=== PATIENT | male | born 1950 | race Caucasian/White ===

== ENCOUNTER 2020-11-25 22:23 | Emergency (ER) | payer OTHER ==
[~2020-11-25] VITALS: Ht 182.9 cm; Wt 83.9 kg
[2020-11-26 04:29] VITALS: BP 125/78
[2020-11-26] MEDS ORDERED: LIPITOR 40 MG T40 M1 PO (11:01)
== END 2020-11-26 04:30 ==
LOC: ER 22:23
PROVIDERS: Emergency Medicine
DX: F23 Brief psychotic disorder (principal); J44.9 Chronic obstructive pulmonary disease, unspecified; K21.9 Gastro-esophageal reflux disease without esophagitis; Z95.1 Presence of aortocoronary bypass graft; Z20.822 Contact with and (suspected) exposure to COVID-19

== ENCOUNTER 2020-11-26 04:30 | Inpatient (IN) | payer OTHER ==
[~2020-11-26] VITALS: Ht 182.9 cm; Wt 84.3 kg
[2020-11-26 04:51] VITALS: BP 146/86
--- NOTE | 2020-11-26 05:59 | NUR ---
RECEIVED REPORT FROM POWER MAYO IN ED. PT ARRIVED ON UNIT 0430 PT AAOX4, VS B/P 146/86, P 55, R 18, T 97.2, 99% RA RR EVEN AND NONLABORED. PT LUNGS CLEAR, HT S1, S2 RR, ABD ACTIVE. PT DENIES SI/HI AND PAIN. PT PRESENTS IN MANIC STATE, EASILY REDIRECTED. HCP Maninder PAVON MD AND Betzaida VILLALTA NP MESSAGE LEFT. PT HX BIPOLAR, PTSD, COPD, GERD, OA, PROSTATE CA, CABG, PROSTECTOMY, C SPINE SURGERY. ZERO S/S OF ACUTE [id number] NOTED, PT WILL CONTINUE TO BE MONITOR PER [facility] PROTOCOL.
[2020-11-26 09:12] VITALS: BP 148/84
[2020-11-26] MEDS ORDERED: LIPITOR 40 MG T40 M1 PO (11:01)
--- NOTE | 2020-11-26 12:33 | NUR ---
PHONG sat in a meeting with pt and Dr. Bunn. Pt appeared very manic and talked about a variety of topics. He admitted he uses LSD and marijuana. Pt also said he was in [place] the early 1970s, but he did not say why. 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 He says both his brother and his father suffered from manic like MH dx. PHONG and Dr. Bunn spoke with Miley his who said she is his DPOA. A nursing staff gave PHONG the document. She confirmed that pt does use LSD and marijuana. She said pt has been going to the [place] facilites he worked at formerly and acts like he has Alzheimers. She said he annoys anyone who is not his family. She has asked that pt not be allowed to contact anyone that is not family. PHONG team will continue to follow pt during his stay on this unit.
--- NOTE | 2020-11-26 13:38 | NUR ---
Assess due to admit to [facility]. Manic, hx bipolar, PTSD, CABG, substance abuse. Eating 100% of first few meals on unit. Wt status adequate. Low nutrition risk
--- NOTE | 2020-11-26 15:32 | NUR ---
ROCK LOADER WAS A WITNESS VIA PHONE FOR THE REENACTMENT OF DPOA PAPER WORK WITH ADOLFO DE LA GARZA. VOICED UNDERSTANDING AND AGREES WITH DR PERSON PLAN OF CARE.
--- NOTE | 2020-11-26 17:12 | NUR ---
Assumed pt care at 0700. pt was alert and oriented x4. Ambulates with a steady gait. participates in groups. took medication whole without difficulty. Assessments completed,vss.no sign of acute distress noted upon assessments. DEnies si/hi. denies pain. Pt was being inappropriate most of the day. pt touches the female pts, and staffs inappropriately. pt was redirected severally by staff. pt was told to stop touching other pts. pt continues to be inappropriate, loud, unco-operative and disruptive. At 0906 pt got 15mg IM of Geodon. At this time pt is in the day room. will continue to monitor pt.
[2020-11-26 19:03] VITALS: BP 123/80
--- NOTE | 2020-11-27 03:01 | NUR ---
11-26-20 CARE TRANSFERRED 1899 OBSERVED PT WALKING IN HALLWAY. LATER PT AAOX4, VSS, RR EVEN AND NONLABORED ON RA. PT DENIES PAIN AND SI/HI. PT PRESENTS IN MANIC STATE AND EMOTION EASILY CHANGE FROM HAPPY TO CRYING. PT HAS POOR SOCIAL BARRIER OFTEN CROSSING INTO OTHERS SPACE, PT HAS BEEN EASILY REDIRECTED WITH NO DIFFICULTIES. DURING MEDICATION ADMIN PT WAS WANTING TO LOWER AMOUNT OF MEDICATION AND TRIED TO NEOGITATION WHEN EXPLAINED ABOUT THERAPUTIC LEVELS PT WAS COMPLIANT WITH MEDICATON. ZERO S/S OF ACUTE DISTRESS NOTED, PT WILL CONTINUE TO BE MONITOR PER [facility] PROTOCOL.
[2020-11-27 09:09] VITALS: BP 123/80
--- NOTE | 2020-11-27 09:19 | NUR ---
THIS ASSUMED CARE AT 0700 THIS MORNING. HE IS HYPERVERVAL. HE IS ATTEMPTING TO TAKE CARE OF PEERS. STAFF HAS BEEN ASKED BY STAFF NOT TO CARETAKE OTHERS. HE SEEMED UPSET WITH THIS AND SAT IN A CHAIR BY HIMSELF. HE ATTENDED MORNING MEETING AND WAS INTERESTED IN TELLING THE STAFF IF THEY WERE DOING A GOOD JOB OR NOT. ASSESSMENT IS UNREMARKABLE THIS MORNING. HE TOOK HIS MORNING MEDICATIONS WITHOUT PROBLEMS NOTED.
[2020-11-27 10:51] VITALS: BP 132/81
--- NOTE | 2020-11-27 13:39 | NUR ---
PHONG received a msg from [place] asking for clarification on if pt is on a 96hr hold. PHONG and Dr. Bunn contacted Miley and explained to her that pt signed in willingly; the possibility of a 96 came from [facility] and was not needed since pt signed himself in. Yesterday, pt wanted to sign himself out but was still very manic so Dr. Bunn enacted his DPOA so that he could not, and the unit will now defer to Miley for decisions. Miley said she is in agreement with that plan; she said that he is not to leave until the psychiatrist says he is ready. PHONG team will continue to follow pt during his stay on this unit.
[2020-11-27 19:19] VITALS: BP 134/77
--- NOTE | 2020-11-28 03:55 | NUR ---
11-27-20 CARE TRANSFERRED 1899 OBSERVED PT SITTING IN DAY ROOM SOCIALIZING WITH PEER. LATER PT AAOX4, VSS, RR EVEN AND NONLABORED ON RA, PT DENIES PAIN AND SI/HI. PT HAS REMAINED CALM AND COOPERATIVE. ZERO S/S OF ACUTE DISTRESS NOTED, PT WILL CONTINUE TO BE MONITOR PER [facility] PROTOCOL.
[2020-11-28 09:46] VITALS: BP 117/81
[2020-11-28 09:49] VITALS: BP 117/81
[2020-11-28 10:20] VITALS: BP 117/81
--- NOTE | 2020-11-28 10:35 | NUR ---
ASSUMED CARE AT 0700 THIS MORNING. PT. COOPERATIVE WITH ASSESSMENT AND MEDICATIONS. HE STATES HE FEELS BETTER TODAY AND FEELS THE MEDICATIONS ARE WORKING. HE THEN STATES HE THINKS HE SHOULD BE DISCHARGED BY WEDNESDAY THIS WEEK. THIS STEEL FABRICATOR TALKED TO HIM THAT ONE POSITIVE REPORT IS NOT TELL US ALL WE NEED TO KNOW AND HE STILL NEEDS TO BE UNDER OBSERVATION. HE ATTENDED MORNING GROUP. NO NEW PROBLEMS NOTED OR VOICED. WILL CONTINUE TO MONITOR.
[2020-11-28 19:31] VITALS: BP 128/80
--- NOTE | 2020-11-28 21:10 | H ---
[facility] [place] [address] HISTORY AND PHYSICAL Name: FERCHO DE LA GARZA Room #: 517-A ADM IN M.R.#: [id number] Admission: 11/26/20 Attend Phys: Niels Bunn DO Discharge: Date of : 54 Report #: [id number] THIS REPORT FOR: cc: Favio Parekh, Favio Reagan,Niels Andrews DO ~ DATE OF SERVICE: 11/26/2020 INPATIENT PSYCHIATRIC EVALUATION ATTENDING PHYSICIAN: Niels Bunn DO. DOUGH MOLDER: Pavithra Aponte and Ronnie Gifford MD, Hospitalist service. REASON FOR ADMISSION: Acutely manic, patient is voluntary. SOURCES OF INFORMATION: Records from [facility], telephone conversation with Dr. Neal Nguyen, psychiatrist from the [facility], telephone conversation with his , Yas. HISTORY OF PRESENT ILLNESS: A 70-year-old male who presented initially to [facility] by referral from Dr. Neal Nguyen, [facility] ER and he was in manic state, noncompliant with his medicines experiencing flight of ideas. His daughter describes increasingly impulsive behavior and it is my concern that it is unsure if this patient presents as grave danger to himself. Second affidavit was from Briandashadia Newman, I believe is his daughter, that one says the patient presents the likelihood of serious harm to self. He states he would like to have a near experience. He called the police on himself to evaluate him and asked me if they would shoot him. He has gone to his general practitioner. I believe he is looking for an altercation with the police including possible violence, so they can induce his "near experience" by forcing them to shoot him. The patient presents to the likelihood of serious harm to his spouse. His behavior is erratic as threatening with his body. He puts in the corners. He screams at her with such force that spit flies from his mouth. He says in the past when having a similar manic episode, she tried to leave, and he would not let her and follows her next door. The daughter lives next door, screams outside the door. He reports he has Alzheimer's to others and is a danger, this is not true. Additional information, patient denied SI and psychosis. However, he was hyperverbal, tangential, grandiose, inappropriately and stated he is homicidal towards Eddy Wick, but he is not planning on doing anything. The patient appears to be ruminating over "a near experience." I believe there is nothing wrong with him. No history of past suicide attempt. The patient reports his last psychiatric hospitalization was 1973. [facility] [address] [place] [address] HISTORY AND PHYSICAL Name: FERCHO DE LA GARZA Room #: 517-A [facility] IN ..#: [id number] Admission: 11/26/20 Attend Phys: Niels Bunn DO Discharge: Date of : 54 Report #: [id number] PAST MEDICAL HISTORY: Biceps tendinitis of left upper extremity, cervical disk disease, cervical spondylosis without myelopathy, chronic left shoulder pain, COPD, coronary atherosclerosis of [place] coronary artery, esophageal reflux, history of leukocytosis. PAST SURGICAL HISTORY: Vasectomy, prostate biopsy, Meniere's disease, mixed hyperlipidemia, myelopathy, osteoarthritis, prostate cancer, visual impairment. SURGERIES: CABG without cardiopulmonary pump oxygenation left inferior mesenteric artery to left anterior descending. SURGEON: Amrit Michel, February 2018. MORE PAST SURGICAL HISTORY: He has had a cardiac catheterization, left cervical discectomy, CABG transesophageal February 2018, knee surgery, right knee replacement, prostatectomy, May 2018. SOCIAL HISTORY: Former smoker. He smoked 2 packs a day for 40 pack years, quit in 1998. Never used smokeless tobacco, has daily marijuana use. LABORATORY DATA: UDS was positive for THC. Urinalysis showed small bilirubin, negative ketones, specific gravity was greater than 1, negative nitrites. Alcohol less than 10. CBC: White count 7.64, H and H of 15.6 and 46, platelets 279. Sodium 138, potassium 3.5, chloride 107, bicarbonate 22, anion gap 9, calcium 8.7, glucose 122, total protein 7.0, albumin 4.0, alkaline phosphatase 97. COVID PCR is negative, got 5 mg of Haldol, 2 mg Ativan in the ER. From : This is the first time the patient has been going around the community, particularly bothering people in a manic state. 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 EKG was done, ventricular rate 86, QTc 425, CO interval 128. PHYSICAL EXAMINATION: VITAL SIGNS: Here at [place], temperature 36.1, pulse 82, respirations 18, BP 148/84, O2 sat 98%. MUSCULOSKELETAL: Unkempt, male, increased pace of gait. Normal station. MENTAL STATUS EXAMINATION: This is a well-developed male, appearing stated age with long curly hair. Attention and concentration limited, easily distractible. Speech pressured. Thought process linear at times, becoming tangential. Thought content delusional- about what he has been doing [facility] [address] [place] [address] HISTORY AND PHYSICAL Name: FERCHO DE LA GARZA Room #: 517-A [facility] IN ..#: [id number] Admission: 11/26/20 Attend Phys: Niels Bunn, Discharge: Date of : 54 Report #: [id number] compared to what his family. mood/affect- euphoric, grandiose- manic,congruent Medical record document very disorganized. Denied SI or HI. Denied auditory, visual, or tactile hallucinations. Memory not formally tested. Insight impaired, judgment impaired. Fund of knowledge, no greater than average. FORMULATION: A 70-year-old male, history of bipolar 1 disorder, presenting frankly manic, his comorbidities including coronary artery disease, degenerative disk disease. DIAGNOSES: At this time, bipolar 1 disorder, most recent episode manic with psychotic features, substance use disorder for marijuana, substance use disorder from tobacco by history. PLAN: Evaluate, stabilize, obtain collateral. Regarding the patient's medications, we had him on aspirin, atorvastatin and famotidine. We are going to go ahead and start him on Depakote 500 mg twice a day, Haldol 2 mg 3 times a day to see if we can get this cassandra under control. Right now he is voluntary. At this point, he will not be allowed to leave against medical advice. Time spent on this case is greater than 70 minutes, greater than 50% time spent on review of records, coordination of care. STRENGTHS: insured, supportive family. WEAKNESSES: Advanced age, medical comorbidities. <ELECTRONICALLY SIGNED> By: Niels Bunn DO 11/28/20 2110 1304 1400 Niels Bunn DO /nt
--- NOTE | 2020-11-29 05:15 | NUR ---
Assumed care on 11/28/20 @ 1900, cooperative with care a&Zeeshan4, JOSE, took meds whole. Ambulates with a steady gait.
[2020-11-29 08:00] VITALS: BP 127/86
--- NOTE | 2020-11-29 08:36 | NUR ---
PT SITTING IN DINING ROOM EATING BREAKFAST. PT ASKED WHAT MEDS HE WAS TAKING. TOLD PT WHAT EACH ONE MED WAS AND HE DID TAKE THEM. PT COOROPERATIVE WITH MEDS THIS AM. NO SIGNS OF ANXIETY.
[2020-11-29 09:48] VITALS: BP 127/86
--- NOTE | 2020-11-29 11:00 | NUR ---
PT WAS DRAWING A PLAN FOR A FESTIVAL AT [place] FOR CONCERTS HE WANTS TO PLAN. HE HAS A DRAWING OF THE RIVER AND WHERE THE STAGE IS AND ALSO WHERE THE VENDORS WOULD BE. PT STATED IT WOULD COST AROUND $45,000.
[2020-11-29 11:36] VITALS: BP 127/86
--- NOTE | 2020-11-29 11:52 | NUR ---
PHONG spoke with Miley and scheduled an in-person family meeting on 12/03 @11:45; this will occur after she visits with pt to see if he is closer to his baseline. She voiced a few issues to PHONG such as pt has license to grow weed for him and 2 other people. She said he grows a "sativa" strand which gives energy, and she is afraid of him smoking that. She says she absolutely does not want him to smoke that. She asked SW if she could destoy those plants. PHONG explained she does not know, but that can be discussed at the . She said ok. PHONG team will continue to follow pt during his stay on this unit.
[2020-11-29 19:23] VITALS: BP 127/86; BP 132/81
--- NOTE | 2020-11-29 20:06 | NUR ---
PT HAS HAD A GOOD DAY TODAY. NO SIGNS OF CHRISTINA EXCEPT FOR THE CONCERT PLANNING. PT VERY TALKATIVE WITH OTHER PATIENTS AND PERSONABLE.
--- NOTE | 2020-11-29 22:26 | NUR ---
PT SITTING IN DAY ROOM WITH FEMALE PEERS, COLORING PROVIDED ITEMS. PT HAS BLUNTED AFFECT, BUT CHEERFUL WITH CONVERSATION. GOOD EYE CONTACT. STEADY GAIT. COMPLIANT WITH MEDS AND HS SNACK.
[2020-11-30 08:23] VITALS: BP 135/99
[2020-11-30 09:16] VITALS: BP 133/99
--- NOTE | 2020-11-30 11:10 | NUR ---
1110 RESUMMED CARE FROM OVERNIGHT SHIFT THIS AM, PATIENT IN DAY ROOM SITTING QUIETLY IN SHARMAINE CHAIR. PATIENT ATE BREAKFAST TOOK MEDICATION WITHOUT INCIDENCE. PATIENT ALERT ORIENTED TIMES 4 PATIENT DENIES SI/HI/AH/VH AT PRESENT. PATIENTS ABDOMEN SOFT BOWEL SOUNDS PRESENT PATIENTS LUNGS CLEAR. PATIENT CALM COOPERATIVE PATIENT SPOKE WITH HIS CONVERSATION APPROPRIATE. WILL CONTINUE TO MONITOR PATIENT FOR SAFETY AND BEHAVIORS.
[2020-11-30 19:51] VITALS: BP 139/89
--- NOTE | 2020-12-01 00:59 | NUR ---
Assumed care on 11/30/20 @ 2100, A&Ox1 pleasant affect noted, denies CROUCH/HV/SI/HI. Called and complied with request to speak to her within the area near the nurses desk, so that staff is able to monitor calls for apropriate interaction, and to prevent additional calls to unknown others. PRN Tylenol 650 provided @ 1999 for generalized pain. Slept in agueda chair in the day room that he positioned in the corner at the far end of the room.
[2020-12-01 08:56] VITALS: BP 128/86
[2020-12-01 09:42] VITALS: BP 128/86
--- NOTE | 2020-12-01 11:17 | NUR ---
1132 RESUMMED CARE FROM OVERNIGHT SHIFT THIS AM, PATIENT IN DAY ROOM ASLEEP IN SHARMAINE CHAIR. PATIENT DID NOT WANT TO SLEEP IN HIS BED LAST NIGHT; PATIENT ALERT ORIENTED TIMES 4. PATIENT DENIES SI/HI/AH/VH AT PRESENT PATIENTS ABDOMEN SOFT BOWEL SOUNDS PRESENT. PATIENTS LUNGS CLEAR PATIENT HAS NOT DISPLAYED ANY BEHAVIORS. SOMETIMES PARTICIPATES IN GROUPS WILL CONTINUE TO MONITOR PATIENT FOR SAFETY AND BEHAVIORS.
--- NOTE | 2020-12-01 14:21 | NUR ---
PHONG met with pt to discuss his concerns re: when he will discharge. SW informed that discharge would take place at some point after the family meeting on Wednesday. Pt also inquired about wearing his shoes. SW discussed his request with his nursing staff. SW team will remain available.
[2020-12-01 19:13] VITALS: BP 126/78
--- NOTE | 2020-12-02 03:15 | NUR ---
12-01-20 CARE TRANSFERRED 1899 OBSERVED PT WALKING IN HALLWAY. LATER PT AAOX4, VSS, RR EVEN AND NONLABORED ON RA. PT DENIES SI/HI. PT REPORTS PAIN IN KNEES AND RATES 6 ON 0-10 SCALE, PAIN HAS BEEN MANAGED WITH PRN MEDICATION. PT HAS REMAINED CALM AND COOPERATIVE, LATER PT BED WAS ADJUSTED FOR COMFORT. ZERO S/S OF ACUTE DISTRESS NOTED, PT WILL CONTINUE TO BE MONITOR PER [facility] PROTOCOL.
[2020-12-02 08:30] VITALS: BP 141/87
--- NOTE | 2020-12-02 08:44 | NUR ---
PT LYING IN RECLINER IN DINING ROOM. PT STATED HIS KNEES HURT AND HE DIDN'T KNOW IF IT WAS FROM WALKING AROUND. ADM TYLENOL 325MG 2 TABS PO FOR PAIN TO KNEES OF 4 ON 1-10 SCALE. PT STATED HIS GOAL WAS TO BEHAVE TODAY.
[2020-12-02 09:18] VITALS: BP 141/87
--- NOTE | 2020-12-02 16:29 | NUR ---
ADM TYLENOL 325MG 2 TABS PO FOR COMPLAINTS OF KNEE PAIN TO RT KNEE OF 4 ON 1-10 SCALE.
[2020-12-02 19:10] VITALS: BP 143/88
--- NOTE | 2020-12-03 02:44 | NUR ---
12-02-20 CARE TRANSFERRED 1899 OBSERVED PT RESTING IN RECLINER WITH EYES CLOSED IN DAY ROOM. LATER PT AAOX4, VSS, RR EVEN AND NONLABORED ON RA. PT DENIES SI/HI AND PAIN AT THIS TIME. PT PRESENTS CALM AND COOPERATIVE, ZERO S/S OF ACUTE DISTRESS NOTED. PT WILL CONTINUE TO BE MONITOR PER [facility] PROTOCOL.
--- NOTE | 2020-12-03 08:37 | NUR ---
Followup: continues admission on [facility]. Eating >80% meals, able to order own choices from alternative menu requesting options to staff. Wt 185-189 lb, BMI 25. Low nutrition risk
[2020-12-03 08:56] VITALS: BP 129/77
[2020-12-03 08:57] VITALS: BP 129/77
--- NOTE | 2020-12-03 09:33 | NUR ---
0930 RESUMMED CARE FROM OVERNIGHT SHIFT THIS AM, PATIENT IN DAY ROOM SITTING QUIET IN SHARMAINE CHAIR. PATIENT ALERT ORIENTED TIMES 4 PATIENT DENIES SI/HI/AH/VH AT PRESENT. PATIENTS ABDOMEN SOFT BOWEL SOUNDS PRESENT PATIENT'S LUNGS CLEAR. PATIENT DOES ATTEND GROUPS CALM COOPERATIVE NO BEHAVIORS WILL CONTINUE TO MONITOR PATIENT.
[2020-12-03 19:05] VITALS: BP 140/86
--- NOTE | 2020-12-04 04:47 | NUR ---
12-03-20 CARE TRANSFERRED 1914 OBSERVED PT SITTING IN RECLINER IN DAY ROOM WITH EYES CLOSED. LATER PT AAOX4, VSS, RR EVEN AND NONLABORED ON RA, PT DENIES SI/HI AND PAIN. DURING MEDICATION ADMIN PT REPORTED HAVING A ROUGH DAY R/T HIS FAMILY MEETING, PT IS READY TO GO HOME. PT HAS REMAINED CALM AND COOPERATIVE. ZERO S/S OF ACUTE DISTRESS NOTED, PT WILL CONTINUE TO BE MONITOR PER [facility] PROTOCOL.
--- NOTE | 2020-12-04 08:18 | NUR ---
RT Progress Note- Dawit has been active in both the milieu and recreation therapy groups since his admission to [facility]. During Dawit' first few days of participation he showed highly manic behaviors and poor social boundaries. He has since become a productive participant of group, displaying appropriate boundaries, with little need for redirection for caretaking behaviors. Pt expresses decent insight into his behaviors at one point identifying; "I had a visit with my today. She is still aprehensive of me coming home with her. It was a reminder that I need to continue working." He remains goal oriented with support of pt peers and staff. SENIOR STAFF SPECIALIZED EMPLOYMENT will continue to encourage participation and plan.
--- NOTE | 2020-12-04 09:45 | NUR ---
HAS BEEN ATTENDING SCHEDULED ACTIVITIES THIS AM. FULL RANGE AFFECT. DENIES SI.SH/HI. NO PSYCHOSIS,BEHAVIORAL ISSUES NOTED OR REPORTED.
--- NOTE | 2020-12-04 10:51 | NUR ---
PHONG and Dr. Bunn met with pt's daughter Brianda and Miley (DPOA). Both Brianda and Miley said while pt shows improvement, he is still not at his baseline. They said he would never talk about a hierarchy and he is much more caring than he appears. The decision was made, against pt's wishes, that pt will get his labs back and determine if he needs an adjustment then. Brianda will come on Wednesday to visit pt and see how he presents and that will determine if he can discharge before the weekend. It was discussed in tx team that pt presented hyperverbal yesterday afternoon, and at times was down in his mood. SW team will continue to follow pt during his stay on this unit.
[2020-12-04 19:22] VITALS: BP 139/76
[2020-12-04 20:00] VITALS: BP 139/76
--- NOTE | 2020-12-04 20:00 | NUR ---
PT UP WALKING AROUND THE UNIT. PT STATED HE IS GETTING UNCOMFORTABLE IN HIS SKIN. 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 HE STATED HE IS GETTING BORED. PT STATED HE HAS SOME DISCOMFORT TO KNEES. PT CALM, AND COOROPERATIVE WITH MEDS.
--- NOTE | 2020-12-04 21:00 | NUR ---
PT WENT TO BED AT THIS TIME.
[2020-12-05 09:13] VITALS: BP 119/82
[2020-12-05 09:41] VITALS: BP 119/82
--- NOTE | 2020-12-05 10:13 | NUR ---
Assumed pt care at 0700. pt was alert and oriented x4. pt took his meds whole, no difficulty noted. Denies si/hi. denies pain at this time. ambulates with a steady gait. Assessments completed, vss. there was no sign of acute distress noted upon assessments. Participated in groups calm and co-operative with care. AT this time pt is sitting in the day room watching TV. Will continue to monitor pt.
--- NOTE | 2020-12-05 15:48 | NUR ---
Prior to RT group pt expressed uncertainty that he would be able to participate in group d/t his throat feeling as if it was "closing up" and "I can't hardly swallow." Pt was brought a throat lozenge by nursing and agreed to try to attend group as a method of distraction. During group, pt alternated from sitting with his head on the table or standing with a very anxious facial expression. He stated, "I don't know if I can do this. Actually, I can't. I'm going to pass out." AUTO FINANCE SALES REP called for nursing assistance. Dr. Bunn responded and walked pt to the day room. Following group, pt sought out AUTO FINANCE SALES REP to apologize for his inability to participate in group. AUTO FINANCE SALES REP expressed understanding and wished pt to feel better. Aprx 10 minutes later Miguel approached AUTO FINANCE SALES REP with much urgency asking her to go to RT office and look up a yoga term on the computer. Pt expressed that he was experiencing a particular yoga phenomenon much like "chakra" and he wanted to google how to reverse the feeling. AUTO FINANCE SALES REP encourage pt to instead return to his room and practice meditation or breathing exercises. Pt complied but appeared frustrated that he could not find the answer he was looking for.
[2020-12-05 19:26] VITALS: BP 130/83
--- NOTE | 2020-12-05 19:30 | NUR ---
PT LYING IN RECLINER CHAIR THIS KAITLIN AND HE STATED DON'T FORGET ABOUT MY KNEE CREAM. PT WATCHING BASEBALL GAME WITH PEERS.
[2020-12-05 20:00] VITALS: BP 130/83
--- NOTE | 2020-12-05 21:11 | NUR ---
PT ALREADY IN BED. PT HAD TO BE AWOKE FOR MEDS AND KNEE CREAM. PT VOICE SOUNDED GARBLED. PT STATED HE HAD A LUMP TO LEFT SIDE OF HIS NECK, PT STATED MEDICAL DOCTOR DID ASSESS HIS NECK. ENCOURAGED PT TO DRINK WATER BEFORE TAKING MEDICATION. PT DID SWALLOW ONE PILL AT A TIME, PT WANTED MEDS CRUSHED. STATED THAT THE DEPAKOTE IS NOT ABLE TO BE CRUSHED DUE TO LONG ACTING. DID TRY TO GET SPRINKLES ORDERED, UNABLE DUE TO MEDS BEING LONG ACTING. PT DID HAVE SOME PUDDING AFTER MEDS. PT STATED HE HAS BEEN HAVING GREAT SLEEP AND DREAMS FROM MEDS.
--- NOTE | 2020-12-06 01:27 | NUR ---
PT HAS AWOKE 3 TIMES THIS KAITLIN. PT WANTED HIS HEAD OF BED ELEVATED TO HELP WITH SLEEP. OFFERED TYLENOL AND ANOTHER BLANKET. PT REFUSED. PT STATED IF HE CAN'T GET TO SLEEP WITH THE HEAD OF BED ELEVATED HE WOULD COME OUT AND SLEEP IN RECLINER. PT STATED IF IT WAS 0400 HE WOULD GET UP, BUT NOT NOW ITS TOO EARLY.
--- NOTE | 2020-12-06 01:41 | NUR ---
PT BACK UP AND WANTING TYLENOL TO HELP WITH REST. ADM TYLENOL 325MG 2 TABS FOR PAIN TO KNEES OF 4 ON 1-10 SCALE.
--- NOTE | 2020-12-06 02:10 | NUR ---
PT WANTED HEAD OF BED DOWN IN HIS BED. PT APPOLIGIZING FOR KEEPING TO BOTHER THIS SURGICAL SPECIALIST. PT STATED IF I CAN'T GO TO SLEEP WITH HEAD DOWN, HE WAS JUST GOING TO STAY UP.
[2020-12-06 09:00] VITALS: BP 130/83
--- NOTE | 2020-12-06 09:13 | NUR ---
ASSUMED CARE AT 0700 THIS MORNING. PT. UP, DRESSED AND IN THE DINING ROOM FOR BREAKFAST. HE IS PLEASANT AND COOPERATIVE. HE IS [place] AND DOES NOT HAVE HIS HEARING AIDES HERE. HE TOOK IS MEDICATIONS WITHOUT PROBLEMS. HE IS PLEASANT TO ALL THE PATIENTSAND STAFF. HE CONTINUES TO TELL THIS RN HE IS CONFIDENT THAT HE IS LEAVING TODAY. THIS RN INFORMED HIM THAT THERE IS NO ORDER TO DO SO TODAY AT THIS TIME. HE ACCEPTED THIS AND WENT INTO THE DINING ROOM. HE ATTENDED GROUPS/MEALS. NO NEW PROBLEMS NOTED OR VOICED.
[2020-12-06 10:08] VITALS: BP 139/87
--- NOTE | 2020-12-06 12:45 | NUR ---
PHONG was notified that pt's daughter visited and sees much improvement in pt. She is comfortable with him discharging today at 1600. PHONG contacted [facility] and scheduled an appt for pt on Wednesday12/09/2020 @10am for outpatient services including a PHP program. PHONG was given the fax number of [phone] to forward pt's discharge docs to. PHONG contacted Miley and hayder Lamar [phone] and provided to them both updates. PHONG created a PHONG handout with pt's appt info and explained this to pt. PHONG also gave pt's nurse a copy to put in his discharge packet. PHONG team will continue to follow pt during his stay on this unit.
[2020-12-06] MEDS ORDERED: BAYER CHEWABLE81 MG PO (13:34)
[2020-12-06] MEDS ORDERED: LIPITOR40 MG PO (13:34)
[2020-12-06] MEDS ORDERED: DIVALPROEX SOD500 M1 PO (13:35)
[2020-12-06] MEDS ORDERED: HALOPERIDOL 5 MG5 MG PO (13:36)
[2020-12-06] MEDS ORDERED: PROTONIX 20 MG20 MG PO (13:37)
--- NOTE | 2020-12-06 15:28 | NUR ---
SW D/C NOTE SW faxed to [facility] behavioral pt's d/c docs. SW will file docs in pt's hospital file. No other needs for SW team to address at this time.
--- NOTE | 2020-12-07 00:35 | D ---
[facility] [place] [address] DISCHARGE SUMMARY Name: FERCHO DE LA GARZA Room #: 517-A [facility] M.R.#: [id number] Admission: 11/26/20 Attend Phys: Niels Bunn DO Discharge: 12/06/20 Date of : 54 Report #: [id number] THIS REPORT FOR: cc: Favio Parekh, Favio Reagan,Niels Andrews DO ~ DATE OF SERVICE: 12/06/2020 INPATIENT PSYCHIATRIC DISCHARGE SUMMARY ATTENDING PSYCHIATRIST: Niels Bunn DO. FOOD CHEMIST: Ronnie Gifford MD. OUTPATIENT PSYCHIATRIST: Dr. Neal Nguyen. DISCHARGE DIAGNOSES: Bipolar 1 disorder, most recent episode, severe manic with psychotic features, improved. Marijuana use disorder. DISCHARGE DIAGNOSES: As follows, coronary artery disease, status post coronary artery bypass graft, on aspirin and statin. Emphysema, as needed inhalers. Sore throat, Cepacol lozenge p.r.n. History of prostate cancer, status post prostatectomy, status post PCDS. Osteoarthritis. DISCHARGE PLAN: The patient is discharging to his daughter's home. ACTIVITY LEVEL: As tolerated. No alcohol, no illicit drugs, specifically avoid marijuana as that may trigger his cassandra. DIET: Essentially regular diet. DISCHARGE MEDICATIONS: Atorvastatin, calcium 40 mg oral daily, aspirin 81 mg oral daily for heart protection, atorvastatin for hyperlipidemia, Depakote ER 1500 mg oral at bedtime. Blood level at that dose was 55 last night. Haloperidol 5 mg oral twice daily, pantoprazole 40 mg oral twice per day. The patient is given 30-day prescriptions for all of his medications. The patient has been referred to a partial hospitalization program. There was some difficulty with getting him into [facility]'s PHP program so he is going to go to the [facility]. The patient is to start that Wednesday; psychiatric followup will be included with PHP. The patient is encouraged to see his primary care physician within 1 month. LABORATORY DATA: Significant laboratories this admission: COVID-19 PCR was [address] [address] DISCHARGE SUMMARY Name: FERCHO DE LA GARZA Room #: 517-A [facility]#: [id number] Admission: 11/26/20 Attend Phys: Niels Bunn DO Discharge: 12/06/20 Date of : 54 Report #: [id number]. Otherwise, labs were done at outside hospital. REASON FOR ADMISSION: Back on 11/26/2020 is as follows: A 70-year-old male referred by Dr. Neal Nguyen, as he showed up with Dr. Nguyen's office frankly manic. HOSPITAL COURSE: The patient was admitted to Geriatric Psychiatry Unit. He was started on haloperidol as well as Depakote; it was titrated to 1500 mg after a low-blood level of around 40 on a 1000 mg. Haldol was adjusted to 5 mg twice a day. During the course of the admission, the patient became less manic, slept better, was more receptive to comments of his family members. Family meeting was held towards the middle of the admission with his or his daughter. His is going out of town at the end of the week. Daughter agreed for the patient to stay with the patient. [facility] program is encouraged. PHYSICAL EXAMINATION: VITAL SIGNS: Temperature 36.7, pulse 67, respirations 17, BP 139/87, O2 sat 98%. MUSCULOSKELETAL: Unkempt. Normal gait and station. MENTAL STATUS EXAMINATION: This is a well-developed male apparently of stated age. Attention fair. Concentration fair. Speech is normal in rate, rhythm and tone. Thought process is linear and goal directed. Thought content focused on discharge. Mood and affect is euthymic, congruent, fair range. Denied suicidal or homicidal ideation. Denies auditory, visual, or tactile hallucinations. Denied helplessness, hopelessness. Memory not formally tested. Insight fair to limited. Judgment fair. Fund of knowledge at least average. PROGNOSIS: Prognosis for this patient is fair if he maintains in psychiatric treatment and therefore minimizing the chance of future episodes of cassandra. I think a normal life expectancy is reasonable. <ELECTRONICALLY SIGNED> By: Niels Bunn DO 12/07/20 0035 [id number] Niels Bunn DO /nt
== END 2020-12-06 15:55 | disposition home or self-care (01) | DRG 885 ==
LOC: SBH 04:30
PROVIDERS: ADMIT Psychiatry & Neurology Psychiatry; ATTEND Psychiatry & Neurology Psychiatry
DX: F31.2 Bipolar disorder, current episode manic severe with psychotic features (principal); F23 Brief psychotic disorder; F12.90 Cannabis use, unspecified, uncomplicated; I25.10 Atherosclerotic heart disease of native coronary artery without angina pectoris; J43.9 Emphysema, unspecified; M19.90 Unspecified osteoarthritis, unspecified site; K21.9 Gastro-esophageal reflux disease without esophagitis; E78.5 Hyperlipidemia, unspecified; I10 Essential (primary) hypertension; F43.10 Post-traumatic stress disorder, unspecified; J02.9 Acute pharyngitis, unspecified; Z95.1 Presence of aortocoronary bypass graft; Z85.46 Personal history of malignant neoplasm of prostate; Z98.52 Vasectomy status; Z87.891 Personal history of nicotine dependence
CPT/HCPCS: 10880